=== PATIENT | male | born 1970 | race Caucasian/White ===

== ENCOUNTER 2021-03-11 14:57 | Emergency (ER) | payer MEDICAID ==
--- NOTE | 2021-03-11 15:48 | EDM.PDOC ---
ED HPI GENERAL MEDICAL PROBLEM - General Chief Complaint: Upper Extremity Injury/Pain Stated Complaint: SWOLLEN FINGER/RECENT SURGERY Time Seen by Provider: 03/11/21 15:35 Source of Information: Reports: Patient History Limitations: Reports: No Limitations - History of Present Illness Onset: Today, Sudden Duration: Constant Location: Reports: Upper Extremity, Right Quality: Reports: Throbbing Severity: Mild Improves with: Reports: None Worsens with: Reports: None Context: Reports: Trauma (Patient had surgery 2 and half weeks ago for cyst removal of right index finger palmar surface) Associated Symptoms: Reports: No Other Symptoms Treatments PHYSICIAN ASSISTANT SURGERY: Reports: Other (see below) (None) - Related Data Allergies Allergy/AdvReac Type Severity Reaction Status Date / Time No Known Allergies Allergy Verified 03/11/21 15:14 Home Meds: Home Meds NK [No Known Home Meds] 03/11/21 [History] Social & Family History - Tobacco Use Tobacco Use Status *Q: Current Every Day Tobacco User Years of Tobacco use: 20 Packs/Tins Daily: 1 Review of Systems - Review of Systems Review Of Systems: See Below Constitutional: Reports: No Symptoms Musculoskeletal: Reports: Hand Pain (Right second finger incisional pain. Swelling) Skin: Reports: Lesions (Right index finger surgical incision with swelling.) Neurological: Reports: Numbness (Right second digit since time of surgery), Tingling (Right second digit since time of surgery) Psychiatric: Reports: No Symptoms ED EXAM, GENERAL - Physical Exam Exam: See Below Exam Limited By: No Limitations General Appearance: Alert, WD/WN Peripheral Pulses: 2+: Radial (L), Radial (R) Extremities: Normal Capillary Refill, Joint Swelling (Right second digit second MIP joint), Limited Range of Motion. No: Normal Inspection, Normal Range of Motion, Non-Tender Neurological: Alert, Oriented, CN II-XII Intact Psychiatric: Normal Affect, Normal Mood Skin Exam: Warm, Dry, Wound/Incision (Right second digit incision well approximated palmar surface) Course - Vital Signs Last Recorded V/S: Last Vital Signs Temp 36.4 C 03/11/21 15:21 Pulse 93 03/11/21 15:21 Resp 16 03/11/21 15:21 BP 146/87 H 03/11/21 15:21 Pulse Ox 98 03/11/21 15:21 - Re-Assessments/Exams Free Text/Narrative Re-Assessment/Exam: 03/11/21 16:20 Awaiting for x-ray swelling went down into finger. Patient decided to wait on the x-rays as he started to feel better. He thinks he may have had his finger wrapped too tight while he was sitting at home which may have caused the swelling. He is unsure but at this time does not want x-ray. He is fine with watchful waiting. He is instructed to come back if his pain or swelling returns or go see his orthopedist at his soonest convenience. Departure - Departure Time of Disposition: 16:38 Disposition: Home, Self-Care 01 Clinical Impression: Healing of postoperative wound - Discharge Information Instructions: Wound Care, Adult Referrals: PCP,None [Primary Care Provider] - Forms: ED Department Discharge Additional Instructions: Keep finger open to air. Follow orthopedic instructions regarding mobility and use of hand. If problems with postop healing persist return to ER or see Ortho at your earliest convenience. Sepsis Event Note (ED) - Evaluation Sepsis Screening Result: No Definite Risk - Focused Exam Vital Signs: Vital Signs Temp Pulse Resp BP Pulse Ox 03/11/21 15:21 36.4 C 93 16 146/87 H 98 03/11/21 15:10 36.4 C 93 16 146/87 H 98 - Assessment/Plan Assessment:: Postop healing Plan: Continue orthopedic instructions follow with current orthopedist appointment or sooner if swelling returns
== END 2021-03-11 16:38 | disposition home or self-care (01) ==
LOC: JP.ED 14:57
DX: L76.82 Other postprocedural complications of skin and subcutaneous tissue (principal); Z72.0 Tobacco use
CPT/HCPCS: 99283